=== PATIENT | male | born 1960 | race Two or more races ===

== ENCOUNTER 2016-09-13 13:22 | Day surgery (SDC) | payer OTHER ==
[2016-09-13] MEDS ORDERED: ZYLOPRIM300 MG PO (13:33)
[2016-09-13] MEDS ORDERED: ALTOPREV40 MG PO (13:35)
[2016-09-13] MEDS ORDERED: HYZAAR 50-121 TABLET PO (13:35)
[2016-09-13] MEDS ORDERED: TRAMADOL HCL E100 M1 PO (13:36)
[2016-09-13] MEDS ORDERED: ZYRTEC10 M3 PO (13:38)
[2016-09-13] MEDS ORDERED: OXCARBAZEPINE150 MG PO (13:38)
[2016-09-13] MEDS ORDERED: FOLGARD1 TABLET PO (13:39)
== END 2016-09-13 14:30 | disposition home or self-care (01) ==
LOC: PAIN 13:22 → SDC 15:00
DX: M47.816 Spondylosis without myelopathy or radiculopathy, lumbar region (principal); M47.812 Spondylosis without myelopathy or radiculopathy, cervical region; M54.5 Low back pain; M50.90 Cervical disc disorder, unspecified, unspecified cervical region; I10 Essential (primary) hypertension; E78.5 Hyperlipidemia, unspecified; Z79.82 Long term (current) use of aspirin; Z87.891 Personal history of nicotine dependence
CPT/HCPCS: J1030; J2250; J3010; S0020

== ENCOUNTER 2016-09-20 13:21 | Day surgery (SDC) | payer OTHER ==
[~2016-09-20 13:21] MED LIST: ALTOPREV40 MG PO; FOLGARD1 TABLET PO; HYZAAR 50-121 TABLET PO; OXCARBAZEPINE150 MG PO; TRAMADOL HCL E100 M1 PO; ZYLOPRIM300 MG PO; ZYRTEC10 M3 PO
== END 2016-09-20 15:08 | disposition home or self-care (01) ==
LOC: PAIN 13:21 → SDC 15:00 → PAIN 15:00
DX: M47.816 Spondylosis without myelopathy or radiculopathy, lumbar region (principal); M54.5 Low back pain; M47.812 Spondylosis without myelopathy or radiculopathy, cervical region; M50.90 Cervical disc disorder, unspecified, unspecified cervical region; E78.5 Hyperlipidemia, unspecified; I10 Essential (primary) hypertension; Z79.82 Long term (current) use of aspirin; Z79.891 Long term (current) use of opiate analgesic; Z87.891 Personal history of nicotine dependence
CPT/HCPCS: J1030; J2250; J3010; S0020

== ENCOUNTER 2016-11-12 13:33 | Day surgery (SDC) | payer OTHER ==
[~2016-11-12] VITALS: Ht 167.6 cm; Wt 74.8 kg
[2016-11-12] MEDS ORDERED: CENTRUM MULTIG80 MCG PO (14:25)
== END 2016-11-12 16:22 | disposition home or self-care (01) ==
LOC: PAIN 13:33 → SDC 14:00 → PAIN 16:22
DX: M47.812 Spondylosis without myelopathy or radiculopathy, cervical region (principal); M54.2 Cervicalgia; G89.29 Other chronic pain; M54.5 Low back pain; M47.816 Spondylosis without myelopathy or radiculopathy, lumbar region; E78.5 Hyperlipidemia, unspecified; I10 Essential (primary) hypertension; R73.03 Prediabetes; M10.9 Gout, unspecified; Z87.891 Personal history of nicotine dependence; Z79.82 Long term (current) use of aspirin; Z79.891 Long term (current) use of opiate analgesic
CPT/HCPCS: J1030; J2250; J3010; S0020

== ENCOUNTER 2016-11-26 13:31 | Day surgery (SDC) | payer OTHER ==
[~2016-11-26] VITALS: Ht 167.6 cm; Wt 74.8 kg
[~2016-11-26 13:31] MED LIST changes: +CENTRUM MULTIG80 MCG PO
[2016-11-26] MEDS ORDERED: NAPROSYN500 MG PO (13:41)
== END 2016-11-26 15:00 | disposition home or self-care (01) ==
LOC: PAIN 13:31 → SDC 14:00 → PAIN 14:00
DX: M47.812 Spondylosis without myelopathy or radiculopathy, cervical region (principal); M54.2 Cervicalgia; G89.29 Other chronic pain; I10 Essential (primary) hypertension; M47.816 Spondylosis without myelopathy or radiculopathy, lumbar region; Z87.891 Personal history of nicotine dependence; Z79.891 Long term (current) use of opiate analgesic
CPT/HCPCS: J1030; J1885; J2250; J2405; J3010; S0020

== ENCOUNTER 2016-12-10 14:28 | Day surgery (SDC) | payer OTHER ==
[~2016-12-10 14:28] MED LIST changes: +NAPROSYN500 MG PO
[2016-12-10] MEDS ORDERED: VITAMIN D-32000 UNI2 PO (15:05)
[2016-12-10 18:19] VITALS: BP 130/80
== END 2016-12-10 18:05 | disposition home or self-care (01) ==
LOC: PAIN 14:28 → SDC 15:00 → PAIN 15:00
DX: M47.816 Spondylosis without myelopathy or radiculopathy, lumbar region (principal); M54.5 Low back pain; G89.29 Other chronic pain; M47.812 Spondylosis without myelopathy or radiculopathy, cervical region; E78.5 Hyperlipidemia, unspecified; I10 Essential (primary) hypertension; Z79.82 Long term (current) use of aspirin; Z79.891 Long term (current) use of opiate analgesic
CPT/HCPCS: J0131; J1030; J1100; J1885; J2310; J2405; J3010; S0020

== ENCOUNTER 2017-09-02 14:35 | Day surgery (SDC) | payer OTHER ==
[~2017-09-02] VITALS: Ht 167.6 cm; Wt 70.3 kg
[~2017-09-02 14:35] MED LIST changes: +VITAMIN D-32000 UNI2 PO
[2017-09-02] MEDS ORDERED: METFORMIN HCL500 MG PO (14:42)
[2017-09-02] MEDS ORDERED: LO-DOSE ASPIRIN81 M2 PO (14:44)
== END 2017-09-02 15:45 | disposition home or self-care (01) ==
LOC: PAIN 14:35 → SDC 15:00 → PAIN 15:45
DX: M47.816 Spondylosis without myelopathy or radiculopathy, lumbar region (principal); G89.29 Other chronic pain; M47.812 Spondylosis without myelopathy or radiculopathy, cervical region; M79.1 Myalgia; I10 Essential (primary) hypertension; E11.9 Type 2 diabetes mellitus without complications; Z79.82 Long term (current) use of aspirin; Z79.84 Long term (current) use of oral hypoglycemic drugs; Z79.891 Long term (current) use of opiate analgesic; Z87.891 Personal history of nicotine dependence
CPT/HCPCS: J1030; J2250; S0020

== ENCOUNTER 2017-09-17 14:27 | Day surgery (SDC) | payer OTHER ==
[~2017-09-17] VITALS: Ht 165.1 cm; Wt 70.8 kg
[~2017-09-17 14:27] MED LIST changes: +CLOBETASOL PROP60 GM TP; +DOVONEX 0.005%60 GM PO; +LO-DOSE ASPIRIN81 M2 PO; +METFORMIN HCL500 MG PO
== END 2017-09-17 15:41 | disposition home or self-care (01) ==
LOC: PAIN 14:27 → SDC 15:00 → PAIN 15:41
PROVIDERS: Anesthesiology Pain Medicine
PROC: 3E0T3TZ Introduction of Destructive Agent into Peripheral Nerves and Plexi, Percutaneous Approach (ICD-10-PCS; principal; 2017-09-17)
PROC: BR141ZZ Fluoroscopy of Cervical Facet Joint(s) using Low Osmolar Contrast (ICD-10-PCS; principal; 2017-09-17)
DX: M47.812 Spondylosis without myelopathy or radiculopathy, cervical region (principal); M50.31 Other cervical disc degeneration, high cervical region; M47.816 Spondylosis without myelopathy or radiculopathy, lumbar region; G44.209 Tension-type headache, unspecified, not intractable; E11.9 Type 2 diabetes mellitus without complications; I10 Essential (primary) hypertension; Z87.891 Personal history of nicotine dependence; Z79.82 Long term (current) use of aspirin; Z79.84 Long term (current) use of oral hypoglycemic drugs; Z79.891 Long term (current) use of opiate analgesic; Z88.8 Allergy status to other drugs, medicaments and biological substances
CPT/HCPCS: 82948; J1030; J2250; S0020